=== PATIENT | male | born 1965 ===

== ENCOUNTER 2024-11-22 00:34 | Inpatient (IN) | payer MEDICAID, OTHER ==
[~2024-11-22] VITALS: Ht 177.8 cm; Wt 76.5 kg
[2024-11-22 01:07] LABS: Hematocrit 45.8 % (41.0-53.0); Hemoglobin 16.0 g/dL (13.5-17.5); Mean Corpuscular Hemoglobin 31.3 pg (28.0-32.0); Mean Corpuscular Volume 89.4 fL (80.0-100.0); Nucleated Red Blood Cells % 0.1 %
[2024-11-22 01:14] LABS: Anion Gap 11 (5-15); Carbon Dioxide 26 mmol/L (20-31); Potassium 3.7 mmol/L (3.5-5.1); Sodium 145 mmol/L (136-145)
[2024-11-22 01:15] LABS: Calcium 9.6 mg/dL (8.7-10.4)
[2024-11-22 01:17] LABS: Chloride 108 mmol/L (98-107)
[2024-11-22 01:20] LABS: BUN/Creatinine Ratio 9.4 (10.0-20.0)
[2024-11-22 01:26] LABS: Blood Urea Nitrogen 9 mg/dL (9-23); Glucose 110 mg/dL (74-106)
[2024-11-22] MEDS ORDERED: DOCU-94 PO (02:41)
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
[2024-11-22] MEDS ORDERED: OMEP-434 PO (02:45)
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
[2024-11-22 06:50] LABS: Barbiturate Scree,Urine Neg (NEGATIVE); Opiate Scree,Urine Neg (NEGATIVE)
[2024-11-22 06:51] LABS: Amphetamine Screen, Urine Neg (NEGATIVE); Benzodiazephine Screen, Urine Pos (NEGATIVE); Cannabinoid Screen, Urine Neg (NEGATIVE); Cocaine Screen, Urine Neg (NEGATIVE); Phencyclidine Screen, Urine Neg (NEGATIVE)
[2024-11-22 06:56] LABS: Urine Protein, UAD Negative (Negative)
[2024-11-22 08:30] VITALS: PULSE 74; RESP 16; O2SAT 100
--- NOTE | 2024-11-22 10:21 | DVH ---
CT CT AB PEL WO CON-NO ORAL OR IV INDICATION: abd pain poss rectal bleed EXAM DATE: 11/22/2024 09:39 AM COMPARISON: None RADIATION DOSE: CTDIvol: 8.8 mGy, DLP: 506.97 mGy*cm PROCEDURE: Helical CT images were obtained of the abdomen and pelvis without IV contrast Sagittal and coronal reconstructions are provided. ORAL CONTRAST: None. ADDITIONAL IMAGES / REFORMATS: None All C T scans at this medical facility are performed using dose modulation techniques as appropriate to a p erformed exam including the following: Automated exposure control was utilized; adjustment of the MA and/or KV according to patient size; and use of iterative reconstruction technique. FINDINGS: LUNG BASE: Normal. LIVER: Severe hepatic steatosis. GALLBLADDER AND BILIARY TREE: No calcified gallstones. Normal caliber wall. No intra- or extrahepatic biliary ductal dilation. PANCREAS: Normal. SPLEEN: Normal. BOWEL: Severe sigmoid diverticulosis.. Normal appendix. ADRENALS: Normal. KIDNEYS AND URETER: 2.1 cm right kidney cyst. BLADDER: Normal. REPRODUCTIVE ORGANS: Normal. LYMPH NODES:No lymphadenopathy. PERITONEUM: No ascites or free air. No other fluid collection. VESSELS: Scattered atherosclerotic calcifications are noted. RETROPERITONEUM: Normal. ABDOMINAL WALL: Normal. BONES: Scattered osseous degenerative changes are noted. IMPRESSION: No acute intraabdominal abnormality. No hyperdense material seen in the bowel lumen. Severe hepatic steatosis.
[2024-11-22] MEDS: PANTOPRAZOLE 40 MG/10 ML VIAL INJ IV ONE (11:15)
[2024-11-22] MEDS ORDERED: ONDANSETRON HCL 4 MG/2 ML VIAL IV PRN (11:15)
[2024-11-22] MEDS ORDERED: NITROGLYCERIN 0.4 MG SL TAB SL PRN (11:15)
[2024-11-22] MEDS: SODIUM CHLORIDE 0.9% 1,000 ML IV SCH (11:15)
[2024-11-22] MEDS ORDERED: LORazepam 2MG/ML-1ML VIAL IV PRN (11:15)
[2024-11-22] MEDS ORDERED: SODIUM CHLORIDE 0.9% 1,000 ML IV ONE (11:15)
[2024-11-22] MEDS ORDERED: DOCUSATE SOD 100 MG CAP PO PRN (11:15)
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
[2024-11-22 11:57] LABS: Magnesium 1.7 mg/dL (1.6-2.6)
[2024-11-22 15:53] LABS: Amphetamine Screen, Urine Neg (NEGATIVE)
[2024-11-22 16:11] LABS: Barbiturate Scree,Urine Neg (NEGATIVE); Benzodiazephine Screen, Urine Pos (NEGATIVE); Cannabinoid Screen, Urine Neg (NEGATIVE); Opiate Scree,Urine Neg (NEGATIVE); Phencyclidine Screen, Urine Neg (NEGATIVE)
[2024-11-22 16:13] LABS: Cocaine Screen, Urine Neg (NEGATIVE)
[2024-11-22] MEDS: FOLIC ACID 1 MG, MAGNESIUM SULF SDV 50% 8 MEQ, MULTIPLE VITAMIN 10 ML, THIAMINE INJ 100... INJ SCH (18:13)
[2024-11-22] MEDS ORDERED: CLON-1004 PO (18:22)
[2024-11-22] MEDS ORDERED: AMPH20TA2 PO (18:22)
[2024-11-22] MEDS ORDERED: LISI40TA16 PO (18:22)
[2024-11-22] MEDS ORDERED: clonazePAM 0.5 MG TAB PO SCH (22:00)
[2024-11-22] MEDS: PANTOPRAZOLE 40 MG/10 ML VIAL INJ IV SCH (22:14)
[2024-11-23] VITALS: BP 144/92; PULSE 67
[2024-11-23 04:10] VITALS: BP 147/84; PULSE 69; RESP 18; TEMP 97.5; O2SAT 98
[2024-11-23 08:50] LABS: Albumin 3.9 g/dL (3.2-4.8); Alkaline Phosphatase 57 U/L (46-116); Anion Gap 10 (5-15); BUN/Creatinine Ratio 8.0 (10.0-20.0); Carbon Dioxide 24 mmol/L (20-31); Chloride 105 mmol/L (98-107); Glucose 93 mg/dL (74-106); Potassium 3.6 mmol/L (3.5-5.1); Sodium 139 mmol/L (136-145); Total Protein 6.1 g/dL (5.7-8.2)
[2024-11-23 08:52] LABS: Alanine Aminotransferase 69 U/L (7-40); Blood Urea Nitrogen 7 mg/dL (9-23)
[2024-11-23 08:53] LABS: Bilirubin, Total 1.5 mg/dL (0.2-1.0); Calcium 8.6 mg/dL (8.7-10.4)
[2024-11-23 08:56] LABS: Hematocrit 41.0 % (41.0-53.0); Hemoglobin 14.3 g/dL (13.5-17.5); Mean Corpuscular Hemoglobin 31.4 pg (28.0-32.0); Mean Corpuscular Volume 89.8 fL (80.0-100.0); Nucleated Red Blood Cells % 0.3 %
[2024-11-23 09:15] VITALS: BP 148/97; PULSE 75; RESP 20; TEMP 99; O2SAT 99
[2024-11-23] MEDS: LISINOPRIL 20 MG TAB PO SCH (09:25)
--- NOTE | 2024-11-23 12:14 | DVHPN2 ---
Reviewed: Care Plan, H&P, Labs, Medications, Previous Orders, Radiology Changes from previous H/P or p: No Changes Eyes: No Pain, No Vision change, No Conjunctivae inflammation, No Eyelid inflammation, No Other, No Redness ENT: No Ear pain, No Ear discharge, No Nose pain, No Nose discharge, No Nose congestion, No Mouth pain, No Mouth swelling, No Throat pain, No Throat swelling, No Other Cardiovascular: No Chest Pain, No Palpitations, No Orthopnea, No Paroxysmal Noc. Dyspnea, No Edema, No Lt Headedness, No Other Respiratory: No Cough, No Dry, No Shortness of breath, No SOB with excertion, No Wheezing, No Hemoptysis, No Pleuritic Pain, No Sputum, No Other Gastrointestinal: No Nausea, No Vomiting, No Abdominal Pain, No Diarrhea, No Constipation, No Melena; Hematochezia; No Other Genitourinary: No Dysuria, No Frequency, No Incontinence, No Hematuria, No Retention, No Other Musculoskeletal: No other, No neck pain, No shoulder pain, No arm pain, No back pain, No hand pain, No leg pain, No foot pain Skin: No Rash, No Lesions, No Jaundice, No Bruising, No Other Objective Vitals Vital Signs Date Time Temp Pulse Resp B/P (MAP) Pulse Ox O2 Delivery O2 Flow Rate FiO2 11/23/24 09:25 148/97 11/23/24 09:15 99.0 75 20 99 99.0 11/22/24 20:00 Room Air* 0 21 Intake/Output Intake and Output 11/23/24 07:00 Intake Total 1000 ml Balance 1000 ml Intake Oral 1000 ml # Voids 5 Medications Current Medications Medications Dose Ordered Sig/Hattie Route Start Time Stop Time Status Last Admin Dose Admin Sodium Chloride 1,000 ml @ 120 mls/hr Q8H20M IV 11/22/24 11:15 11/23/24 03:55 120 MLS/HR Ondansetron HCl 4 mg Q4HP PRN IV 11/22/24 11:15 Docusate Sodium 100 mg BIDPRN PRN PO 11/22/24 11:15 Nitroglycerin 0.4 mg Q5MINP PRN SL 11/22/24 11:15 Pantoprazole Sodium 40 mg BID IV 11/22/24 22:00 11/23/24 09:22 40 MG Chlordiazepoxide HCl 50 mg Q12H PO 11/23/24 18:00 11/24/24 06:01 Chlordiazepoxide HCl 25 mg Q12H PO 11/24/24 18:00 11/25/24 06:01 Chlordiazepoxide HCl 25 mg QAM PO 11/26/24 07:00 11/26/24 07:01 Lorazepam 1 mg Q2HPRN PRN IV 11/22/24 11:15 Folic Acid 1 mg/ Magnesium Sulfate 8 meq/ Multivitamins 10 ml/Thiamine HCl 100 mg/Sodium Chloride 1,013.2 ml @ 126.247 mls/hr DAILY@1800 INJ 11/22/24 18:00 11/22/24 18:13 126.247 MLS/HR Lisinopril 40 mg DAILY PO 11/23/24 10:00 11/23/24 09:25 40 MG Clonazepam 1 mg HSPRN PO 11/22/24 22:00 Hold Laboratory Results Laboratory Tests 11/23/24 07:29 Chemistry Test 11/23/24 07:29 Albumin 3.9 g/dL (3.2-4.8) Calcium Level 8.6 mg/dL (8.7-10.4) L Total Protein 6.1 g/dL (5.7-8.2) LFT Test 11/23/24 07:29 Alanine Aminotransferase (ALT) 69 U/L (7-40) H Alkaline Phosphatase 57 U/L (46-116) Aspartate Amino Transferase (AST) 70 U/L (13-40) H Total Bilirubin 1.5 mg/dL (0.2-1.0) H Urinalysis Test 11/22/24 06:17 Urine Color Yellow (Yellow) Urine Clarity Clear (Clear) Urine pH 6.0 (5.0-9.0) Urine Specific [place] 1.022 (1.001-1.035) Urine Protein Negative (Negative) Urine Ketones 1+ (Negative) H Urine Blood Trace /uL (Negative) H Urine Nitrite Negative (Negative) Urine Bilirubin Negative (Negative) Urine Urobilinogen 2 mg/dL (Negative) H Urine Leukocyte Esterase Negative /uL (Negative) Urine RBC 6 /hpf (0 - 3) Urine Microscopic WBC 3 /HPF (0-3) Urine Squamous Epithelial Cells Few /hpf (<5) Urine Bacteria None seen /hpf (None Seen) Urine Hyaline Casts Few /lpf (0 - 2) Urine Mucus Few (None Seen) Urine Glucose Normal mg/dL (Normal) Labs and/or images reviewed: Labs reviewed by me, Image(s) reviewed by me Assessment/Plan Assessment/Plan Acute alcoholic intoxication with a blood alcohol level 273: Banana bag Acute alcoholic withdrawal: Librium Ativan p.r.n. Acute Metabolic and toxic encephalopathy secondary to alcohol abuse Hypertension Acute dehydration: IV fluids No Previous History of seizures Anxiety Depression CT abdomen pelvis without contrast neg Plan discussed with: Patient Date of Service: Nov 23, 2024 Billing Provider: APRIL CUBA MD Common Visit Codes: [id number] INP/OBS CARE(HIGH) APRIL CUBA MD Nov 23, 2024 12:14
[2024-11-23 17:12] VITALS: BP 145/95; PULSE 67; RESP 20; TEMP 97.7; O2SAT 98
[2024-11-23 21:00] VITALS: BP 154/99; PULSE 81; RESP 17; TEMP 97.8; O2SAT 97
[2024-11-24 01:00] VITALS: BP 142/91; PULSE 59; RESP 18; TEMP 97.6; O2SAT 99
[2024-11-24 04:46] VITALS: BP 140/80; PULSE 62; RESP 18; TEMP 97.7; O2SAT 97
[2024-11-24 08:56] VITALS: BP 128/75; PULSE 64; PULSE 98; RESP 18; TEMP 97.6; O2SAT 64; O2SAT 98
--- NOTE | 2024-11-24 11:16 | DVHPN2 ---
Reviewed: Care Plan, H&P, Labs, Medications, Previous Orders, Radiology Changes from previous H/P or p: No Changes Eyes: No Pain, No Vision change, No Conjunctivae inflammation, No Eyelid inflammation, No Other, No Redness ENT: No Ear pain, No Ear discharge, No Nose pain, No Nose discharge, No Nose congestion, No Mouth pain, No Mouth swelling, No Throat pain, No Throat swelling, No Other Cardiovascular: No Chest Pain, No Palpitations, No Orthopnea, No Paroxysmal Noc. Dyspnea, No Edema, No Lt Headedness, No Other Respiratory: No Cough, No Dry, No Shortness of breath, No SOB with excertion, No Wheezing, No Hemoptysis, No Pleuritic Pain, No Sputum, No Other Gastrointestinal: No Nausea, No Vomiting, No Abdominal Pain, No Diarrhea, No Constipation, No Melena; Hematochezia; No Other Genitourinary: No Dysuria, No Frequency, No Incontinence, No Hematuria, No Retention, No Other Musculoskeletal: No other, No neck pain, No shoulder pain, No arm pain, No back pain, No hand pain, No leg pain, No foot pain Skin: No Rash, No Lesions, No Jaundice, No Bruising, No Other Objective Vitals Vital Signs Date Time Temp Pulse Resp B/P (MAP) Pulse Ox O2 Delivery O2 Flow Rate FiO2 11/24/24 08:56 97.6 98 18 128/75 (92) 64 97.6 11/23/24 20:00 Room Air* 0 21 Intake/Output Intake and Output 11/24/24 07:00 Intake Total 2150 ml Balance 2150 ml Intake Oral 2150 ml # Voids 11 Medications Current Medications Medications Dose Ordered Sig/Hattie Route Start Time Stop Time Status Last Admin Dose Admin Sodium Chloride 1,000 ml @ 120 mls/hr Q8H20M IV 11/22/24 11:15 11/23/24 20:35 120 MLS/HR Ondansetron HCl 4 mg Q4HP PRN IV 11/22/24 11:15 Docusate Sodium 100 mg BIDPRN PRN PO 11/22/24 11:15 Nitroglycerin 0.4 mg Q5MINP PRN SL 11/22/24 11:15 Pantoprazole Sodium 40 mg BID IV 11/22/24 22:00 11/23/24 22:10 40 MG Chlordiazepoxide HCl 25 mg Q12H PO 11/24/24 18:00 11/25/24 06:01 Chlordiazepoxide HCl 25 mg QAM PO 11/26/24 07:00 11/26/24 07:01 Lorazepam 1 mg Q2HPRN PRN IV 11/22/24 11:15 Folic Acid 1 mg/ Magnesium Sulfate 8 meq/ Multivitamins 10 ml/Thiamine HCl 100 mg/Sodium Chloride 1,013.2 ml @ 126.247 mls/hr DAILY@1800 INJ 11/22/24 18:00 11/23/24 18:00 126.247 MLS/HR Lisinopril 40 mg DAILY PO 11/23/24 10:00 11/23/24 09:25 40 MG Clonazepam 1 mg HSPRN PO 11/22/24 22:00 Hold Laboratory Results Laboratory Tests 11/23/24 07:29 Urinalysis Test 11/22/24 06:17 Urine Color Yellow (Yellow) Urine Clarity Clear (Clear) Urine pH 6.0 (5.0-9.0) Urine Specific [place] 1.022 (1.001-1.035) Urine Protein Negative (Negative) Urine Ketones 1+ (Negative) H Urine Blood Trace /uL (Negative) H Urine Nitrite Negative (Negative) Urine Bilirubin Negative (Negative) Urine Urobilinogen 2 mg/dL (Negative) H Urine Leukocyte Esterase Negative /uL (Negative) Urine RBC 6 /hpf (0 - 3) Urine Microscopic WBC 3 /HPF (0-3) Urine Squamous Epithelial Cells Few /hpf (<5) Urine Bacteria None seen /hpf (None Seen) Urine Hyaline Casts Few /lpf (0 - 2) Urine Mucus Few (None Seen) Urine Glucose Normal mg/dL (Normal) Labs and/or images reviewed: Labs reviewed by me, Image(s) reviewed by me Assessment/Plan Assessment/Plan Acute alcoholic intoxication with blood alcohol level 273: Banana bag Acute alcoholic withdrawal: Librium Ativan p.r.n. Acute Metabolic and toxic encephalopathy secondary to alcohol abuse Hypertension Acute dehydration: IV fluids No Previous History of seizures Anxiety Depression CT abdomen pelvis without contrast neg Plan discussed with: Patient Date of Service: Nov 24, 2024 Billing Provider: APRIL CUBA MD Common Visit Codes: [id number] INP/OBS CARE(HIGH) APRIL CUBA MD Nov 24, 2024 11:16
[2024-11-24 13:16] VITALS: BP 127/79; PULSE 63; RESP 18; TEMP 97.5; O2SAT 97
[2024-11-24] MEDS: FOLIC ACID 1 MG TAB PO ONE (13:56)
[2024-11-24] MEDS: MAGNESIUM OXIDE 400 MG TAB PO ONE (13:56)
[2024-11-24] MEDS: MULTIPLE VITAMIN TAB PO ONE (13:56)
[2024-11-24] MEDS: THIAMINE HCL 100 MG TAB PO ONE (13:56)
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
[2024-11-24 16:32] VITALS: BP 128/76; PULSE 64; RESP 18; TEMP 97.6; O2SAT 97
[2024-11-24 20:41] VITALS: BP 136/87; PULSE 71; RESP 18; TEMP 97.8; O2SAT 97
[2024-11-25] VITALS (8 sets, daily range): BP systolic 129–148; BP diastolic 74–101; PULSE 63–91; RESP 16–18; TEMP 97.7–98.1; O2SAT 97–98
[2024-11-25 08:01] LABS: Hematocrit 40.7 % (41.0-53.0); Hemoglobin 14.4 g/dL (13.5-17.5); Mean Corpuscular Hemoglobin 31.9 pg (28.0-32.0); Mean Corpuscular Volume 90.0 fL (80.0-100.0); Nucleated Red Blood Cells % 0.2 %
[2024-11-25] MEDS: MULTIPLE VITAMIN TAB PO SCH (10:03)
[2024-11-25] MEDS: FOLIC ACID 1 MG TAB PO SCH (10:04)
[2024-11-25] MEDS: THIAMINE HCL 100 MG TAB PO SCH (10:04)
[2024-11-25] MEDS: MAGNESIUM OXIDE 400 MG TAB PO SCH (10:04)
--- NOTE | 2024-11-25 10:28 | DVHPN2 ---
Reviewed: Care Plan, H&P, Labs, Medications, Previous Orders, Radiology Changes from previous H/P or p: No Changes Eyes: No Pain, No Vision change, No Conjunctivae inflammation, No Eyelid inflammation, No Other, No Redness ENT: No Ear pain, No Ear discharge, No Nose pain, No Nose discharge, No Nose congestion, No Mouth pain, No Mouth swelling, No Throat pain, No Throat swelling, No Other Cardiovascular: No Chest Pain, No Palpitations, No Orthopnea, No Paroxysmal Noc. Dyspnea, No Edema, No Lt Headedness, No Other Respiratory: No Cough, No Dry, No Shortness of breath, No SOB with excertion, No Wheezing, No Hemoptysis, No Pleuritic Pain, No Sputum, No Other Gastrointestinal: No Nausea, No Vomiting, No Abdominal Pain, No Diarrhea, No Constipation, No Melena; Hematochezia; No Other Genitourinary: No Dysuria, No Frequency, No Incontinence, No Hematuria, No Retention, No Other Musculoskeletal: No other, No neck pain, No shoulder pain, No arm pain, No back pain, No hand pain, No leg pain, No foot pain Skin: No Rash, No Lesions, No Jaundice, No Bruising, No Other Objective Vitals Vital Signs Date Time Temp Pulse Resp B/P (MAP) Pulse Ox O2 Delivery O2 Flow Rate FiO2 11/25/24 10:05 132/95 11/25/24 08:47 98.0 76 16 97 98.0 11/24/24 20:00 Room Air* 0 21 Intake/Output Intake and Output 11/25/24 07:00 Intake Total 1700 ml Balance 1700 ml Intake Oral 1700 ml # Voids 9 # Bowel Movements 1 Medications Current Medications Medications Dose Ordered Sig/Hattie Route Start Time Stop Time Status Last Admin Dose Admin Sodium Chloride 1,000 ml @ 120 mls/hr Q8H20M IV 11/22/24 11:15 11/25/24 05:36 120 MLS/HR Ondansetron HCl 4 mg Q4HP PRN IV 11/22/24 11:15 Docusate Sodium 100 mg BIDPRN PRN PO 11/22/24 11:15 Nitroglycerin 0.4 mg Q5MINP PRN SL 11/22/24 11:15 Pantoprazole Sodium 40 mg BID IV 11/22/24 22:00 11/25/24 10:03 40 MG Chlordiazepoxide HCl 25 mg QAM PO 11/26/24 07:00 11/26/24 07:01 Lorazepam 1 mg Q2HPRN PRN IV 11/22/24 11:15 Lisinopril 40 mg DAILY PO 11/23/24 10:00 11/25/24 10:05 40 MG Clonazepam 1 mg HSPRN PO 11/22/24 22:00 Hold Folic Acid 1 mg DAILY PO 11/25/24 10:00 11/25/24 10:04 1 MG Multivitamins 1 tab DAILY PO 11/25/24 10:00 11/25/24 10:03 1 TAB Magnesium Oxide 400 mg DAILY PO 11/25/24 10:00 11/25/24 10:04 400 MG Thiamine HCl 100 mg DAILY PO 11/25/24 10:00 11/25/24 10:04 100 MG Laboratory Results Laboratory Tests 11/23/24 07:29 11/25/24 06:58 Urinalysis Test 11/22/24 06:17 Urine Color Yellow (Yellow) Urine Clarity Clear (Clear) Urine pH 6.0 (5.0-9.0) Urine Specific [place] 1.022 (1.001-1.035) Urine Protein Negative (Negative) Urine Ketones 1+ (Negative) H Urine Blood Trace /uL (Negative) H Urine Nitrite Negative (Negative) Urine Bilirubin Negative (Negative) Urine Urobilinogen 2 mg/dL (Negative) H Urine Leukocyte Esterase Negative /uL (Negative) Urine RBC 6 /hpf (0 - 3) Urine Microscopic WBC 3 /HPF (0-3) Urine Squamous Epithelial Cells Few /hpf (<5) Urine Bacteria None seen /hpf (None Seen) Urine Hyaline Casts Few /lpf (0 - 2) Urine Mucus Few (None Seen) Urine Glucose Normal mg/dL (Normal) Labs and/or images reviewed: Labs reviewed by me, Image(s) reviewed by me Assessment/Plan Assessment/Plan Acute alcoholic intoxication with blood alcohol level 273: Down to 29 Banana bag Acute alcoholic withdrawal: Librium Ativan p.r.n. Acute Metabolic and toxic encephalopathy secondary to alcohol abuse Hypertension Acute dehydration: IV fluids No Previous History of seizures Melena, GI consult by Dr. 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
--- NOTE | 2024-11-25 13:47 | DVHPN2 ---
Subjective Patient admits to feeling better No abdominal pain. No nausea vomiting Patient has dark stool Reviewed: Care Plan, H&P, Labs, Medications, Previous Orders, Radiology Changes from previous H/P or p: No Changes Eyes: No Pain, No Vision change, No Conjunctivae inflammation, No Eyelid inflammation, No Other, No Redness ENT: No Ear pain, No Ear discharge, No Nose pain, No Nose discharge, No Nose congestion, No Mouth pain, No Mouth swelling, No Throat pain, No Throat swelling, No Other Cardiovascular: No Chest Pain, No Palpitations, No Orthopnea, No Paroxysmal Noc. Dyspnea, No Edema, No Lt Headedness, No Other Respiratory: No Cough, No Dry, No Shortness of breath, No SOB with excertion, No Wheezing, No Hemoptysis, No Pleuritic Pain, No Sputum, No Other Gastrointestinal: No Nausea, No Vomiting, No Abdominal Pain, No Diarrhea, No Constipation, No Melena; Hematochezia; No Other Genitourinary: No Dysuria, No Frequency, No Incontinence, No Hematuria, No Retention, No Other Musculoskeletal: No other, No neck pain, No shoulder pain, No arm pain, No back pain, No hand pain, No leg pain, No foot pain Skin: No Rash, No Lesions, No Jaundice, No Bruising, No Other Objective Vitals Vital Signs Date Time Temp Pulse Resp B/P (MAP) Pulse Ox O2 Delivery O2 Flow Rate FiO2 11/25/24 13:00 98.0 75 16 140/86 (104) 98 98.0 11/25/24 08:00 Room Air* 0 21 Intake/Output Intake and Output 11/25/24 06:59 Intake Total 1700 ml Balance 1700 ml Intake Oral 1700 ml # Voids 9 # Bowel Movements 1 General Appearance: Alert, Oriented X3, Cooperative, No acute distress, mild distress, moderate distress, severe distress, Other Lungs: Clear to auscultation, Normal air movement, Other Cardiovascular: Regular rate, Normal S1, Normal S2, No murmurs, Gallops, Rubs, Other Abdomen: Normal bowel sounds, Soft, No tenderness, No hepatospenomegaly, No masses, Other Medications Current Medications Medications Dose Ordered Sig/Hattie Route Start Time Stop Time Status Last Admin Dose Admin Sodium Chloride 1,000 ml @ 120 mls/hr Q8H20M IV 11/22/24 11:15 8/18/25 05:36 120 MLS/HR Ondansetron HCl 4 mg Q4HP PRN IV 11/22/24 11:15 Docusate Sodium 100 mg BIDPRN PRN PO 11/22/24 11:15 Nitroglycerin 0.4 mg Q5MINP PRN SL 11/22/24 11:15 Pantoprazole Sodium 40 mg BID IV 11/22/24 22:00 11/25/24 10:03 40 MG Chlordiazepoxide HCl 25 mg QAM PO 11/26/24 07:00 11/26/24 07:01 Lorazepam 1 mg Q2HPRN PRN IV 11/22/24 11:15 Lisinopril 40 mg DAILY PO 11/23/24 10:00 11/25/24 10:05 40 MG Clonazepam 1 mg HSPRN PO 11/22/24 22:00 Hold Folic Acid 1 mg DAILY PO 11/25/24 10:00 11/25/24 10:04 1 MG Multivitamins 1 tab DAILY PO 11/25/24 10:00 11/25/24 10:03 1 TAB Magnesium Oxide 400 mg DAILY PO 11/25/24 10:00 11/25/24 10:04 400 MG Thiamine HCl 100 mg DAILY PO 11/25/24 10:00 11/25/24 10:04 100 MG Laboratory Results Laboratory Tests 11/23/24 07:29 11/25/24 06:58 Urinalysis Test 11/22/24 06:17 Urine Color Yellow (Yellow) Urine Clarity Clear (Clear) Urine pH 6.0 (5.0-9.0) Urine Specific [place] 1.022 (1.001-1.035) Urine Protein Negative (Negative) Urine Ketones 1+ (Negative) H Urine Blood Trace /uL (Negative) H Urine Nitrite Negative (Negative) Urine Bilirubin Negative (Negative) Urine Urobilinogen 2 mg/dL (Negative) H Urine Leukocyte Esterase Negative /uL (Negative) Urine RBC 6 /hpf (0 - 3) Urine Microscopic WBC 3 /HPF (0-3) Urine Squamous Epithelial Cells Few /hpf (<5) Urine Bacteria None seen /hpf (None Seen) Urine Hyaline Casts Few /lpf (0 - 2) Urine Mucus Few (None Seen) Urine Glucose Normal mg/dL (Normal) Labs and/or images reviewed: Labs reviewed by me, Image(s) reviewed by me Assessment/Plan Assessment/Plan GI bleed Positive stool occult Heavy alcohol history Plan Discussed with Dr. Alvarenga Schedule patient for EGD with biopsy, discussed risks, benefits and alternatives of procedure and sedation, patient understands and agrees Discussed extensively to discontinue alcohol use Plan discussed with: Patient Date of Service: Nov 25, 2024 Billing Provider: EKTA CUBA Common Visit Codes: [id number] INP/OBS CARE(HIGH) EKTA CUBA Nov 25, 2024 13:47
[2024-11-26] VITALS (8 sets, daily range): BP systolic 110–138; BP diastolic 66–95; PULSE 61–71; RESP 11–19; TEMP 97.5–97.9; O2SAT 97–99
[2024-11-26 07:11] LABS: Hematocrit 40.7 % (41.0-53.0); Hemoglobin 14.7 g/dL (13.5-17.5); Mean Corpuscular Hemoglobin 32.4 pg (28.0-32.0); Mean Corpuscular Volume 89.8 fL (80.0-100.0); Nucleated Red Blood Cells % 0.2 %
[2024-11-26 07:40] LABS: INR 0.92 (0.9-1.15); Prothrombin Time 9.8 sec (9.3-11.8)
[2024-11-26] MEDS ORDERED: diphenhdrAMINE HCL 50 MG/1 ML VL ONE (09:10)
[2024-11-26] MEDS ORDERED: SODIUM CHLORIDE LOCK 10 ML ONE (09:10)
[2024-11-26] MEDS ORDERED: MIDAZOLAM HCL 5 MG/ML-1ML VIAL ONE (09:10)
[2024-11-26] MEDS ORDERED: LIDOCAINE VISCOUS 2% 15ML UD ONE (09:10)
[2024-11-26] MEDS ORDERED: NALOXONE HCL 0.4 MG/ML VIAL ONE (09:10)
[2024-11-26] MEDS ORDERED: FLUMAZENIL 0.1 MG/ML INJ 10ML MDV IV ONE (09:10)
[2024-11-26] MEDS ORDERED: fentaNYL CITRATE 100 MCG/2 ML VL ONE ×2 (09:11→16:19)
--- NOTE | 2024-11-26 11:32 | DVHPN2 ---
Reviewed: Care Plan, H&P, Labs, Medications, Previous Orders, Radiology Changes from previous H/P or p: No Changes Eyes: No Pain, No Vision change, No Conjunctivae inflammation, No Eyelid inflammation, No Other, No Redness ENT: No Ear pain, No Ear discharge, No Nose pain, No Nose discharge, No Nose congestion, No Mouth pain, No Mouth swelling, No Throat pain, No Throat swelling, No Other Cardiovascular: No Chest Pain, No Palpitations, No Orthopnea, No Paroxysmal Noc. Dyspnea, No Edema, No Lt Headedness, No Other Respiratory: No Cough, No Dry, No Shortness of breath, No SOB with excertion, No Wheezing, No Hemoptysis, No Pleuritic Pain, No Sputum, No Other Gastrointestinal: No Nausea, No Vomiting, No Abdominal Pain, No Diarrhea, No Constipation, No Melena; Hematochezia; No Other Genitourinary: No Dysuria, No Frequency, No Incontinence, No Hematuria, No Retention, No Other Musculoskeletal: No other, No neck pain, No shoulder pain, No arm pain, No back pain, No hand pain, No leg pain, No foot pain Skin: No Rash, No Lesions, No Jaundice, No Bruising, No Other Objective Vitals Vital Signs Date Time Temp Pulse Resp B/P (MAP) Pulse Ox O2 Delivery O2 Flow Rate FiO2 11/26/24 08:54 97.5 67 17 138/95 (109) 97 97.5 11/26/24 08:00 Room Air* 0 21 Intake/Output Intake and Output 11/26/24 07:00 Intake Total 1668 ml Balance 1668 ml Intake Oral 1668 ml # Voids 11 # Bowel Movements 2 General Appearance: Alert, Oriented X3, Cooperative, No acute distress, mild distress, moderate distress, severe distress, Other Lungs: Clear to auscultation, Normal air movement, Other Cardiovascular: Regular rate, Normal S1, Normal S2, No murmurs, Gallops, Rubs, Other Abdomen: Normal bowel sounds, Soft, No tenderness, No hepatospenomegaly, No masses, Other Medications Current Medications Medications Dose Ordered Sig/Hattie Route Start Time Stop Time Status Last Admin Dose Admin Sodium Chloride 1,000 ml @ 120 mls/hr Q8H20M IV 11/22/24 11:15 11/25/24 14:15 120 MLS/HR Ondansetron HCl 4 mg Q4HP PRN IV 11/22/24 11:15 Docusate Sodium 100 mg BIDPRN PRN PO 11/22/24 11:15 Nitroglycerin 0.4 mg Q5MINP PRN SL 11/22/24 11:15 Pantoprazole Sodium 40 mg BID IV 11/22/24 22:00 11/25/24 21:36 40 MG Lorazepam 1 mg Q2HPRN PRN IV 11/22/24 11:15 Lisinopril 40 mg DAILY PO 11/23/24 10:00 11/25/24 10:05 40 MG Clonazepam 1 mg HSPRN PO 11/22/24 22:00 Hold Folic Acid 1 mg DAILY PO 11/25/24 10:00 11/25/24 10:04 1 MG Multivitamins 1 tab DAILY PO 11/25/24 10:00 11/25/24 10:03 1 TAB Magnesium Oxide 400 mg DAILY PO 11/25/24 10:00 11/25/24 10:04 400 MG Thiamine HCl 100 mg DAILY PO 11/25/24 10:00 11/25/24 10:04 100 MG Laboratory Results Laboratory Tests 11/23/24 07:29 11/26/24 06:07 Coagulation Test 11/26/24 06:07 Prothrombin Time 9.8 sec (9.3-11.8) Prothrombin Time INR 0.92 (0.9-1.15) Urinalysis Test 11/22/24 06:17 Urine Color Yellow (Yellow) Urine Clarity Clear (Clear) Urine pH 6.0 (5.0-9.0) Urine Specific [place] 1.022 (1.001-1.035) Urine Protein Negative (Negative) Urine Ketones 1+ (Negative) H Urine Blood Trace /uL (Negative) H Urine Nitrite Negative (Negative) Urine Bilirubin Negative (Negative) Urine Urobilinogen 2 mg/dL (Negative) H Urine Leukocyte Esterase Negative /uL (Negative) Urine RBC 6 /hpf (0 - 3) Urine Microscopic WBC 3 /HPF (0-3) Urine Squamous Epithelial Cells Few /hpf (<5) Urine Bacteria None seen /hpf (None Seen) Urine Hyaline Casts Few /lpf (0 - 2) Urine Mucus Few (None Seen) Urine Glucose Normal mg/dL (Normal) Labs and/or images reviewed: Labs reviewed by me, Image(s) reviewed by me Assessment/Plan Assessment/Plan Acute alcoholic intoxication with blood alcohol level 273: Down to 29 Banana bag Acute alcoholic withdrawal: Librium Ativan p.r.n. Acute Metabolic and toxic encephalopathy secondary to alcohol abuse Hypertension Acute dehydration: IV fluids No Previous History of seizures Melena, GI consult by Dr. Zachary Alvarenga appreciated , patient getting EGD today Anxiety Depression CT abdomen pelvis without contrast neg Plan discussed with: Patient Date of Service: Nov 26, 2024 Billing Provider: APRIL CUBA MD Common Visit Codes: [id number] INP/OBS CARE(HIGH) APRIL CUBA MD Nov 26, 2024 11:32
[2024-11-26] MEDS: LIDOCAINE VISCOUS 2% 15ML UD MT ONE (16:06)
--- NOTE | 2024-11-26 16:33 | DVHOP2 ---
Operative Report DATE OF OPERATION: 11/26/24 PROCEDURE: Upper Endoscopy with biopsies. PREOPERATIVE INDICATION: The patient is a 59 -year-old male undergoing endoscopy for history of melena POSTOPERATIVE DIAGNOSES: 1. Moderate antral gastritis and moderate duodenitis of the duodenal bulb with superficial erosions PROCEDURE PERFORMED BY: Micheal Alvarenga GI NURSE: Melissa SCOPE: Olympus videoendoscope. ASA CLASS: 3. PREOPERATIVE MEDICATIONS: Versed 5 mg, Fentanyl 150 mcg, Benadryl 50 mg I administered moderate sedation throughout this _8_ minutes procedure. An independent trained observer pushed medications at my direction, and monitored the patient's level of consciousness and physiological status throughout. PROCEDURE IN DETAIL: After obtaining an informed consent, the patient was placed on left lateral decubitus position. The patient was then sedated with the above medications. A bite block was placed between his teeth. The endoscope was then passed through the oropharynx, into the esophagus, and through the stomach and pylorus up to the second and third part of the duodenum. The endoscope was then withdrawn. The 2nd and 3rd part of the duodenal were normal. The duodenal bulb and postbulbar area showed moderate duodenitis with hyperemia erythema and superficial erosions The pre-pyloric area antrum also showed moderate gastritis with superficial pre- pyloric antral gastric erosions and some hyperemia. On retroflexion the fundus and cardia were normal Duodenal and gastric biopsies were obtained. The endoscope was then withdrawn into the distal esophagus Patient had a slightly irregular squamocolumnar junction but no significant erosive esophagitis The patient tolerated the procedure well without difficulty. COMPLICATIONS : None SPECIMENS: Duodenal biopsies Gastric biopsies DISPOSITION: Transfer back to the floor Stable PLAN: 1. Await for biopsy result 2. Will place pt on Protonix 40 mg bid 3. Carafate 1 g p.o. 4 times a day 4. Resume GI soft mechanical diet advance as tolerated 5. Outpatient follow up with GI Services for elective screening colonoscopy 6. Avoid aspirin NSAIDs smoking and alcohol MICHEAL ALVARENGA MD Nov 26, 2024 16:32
[2024-11-26] MEDS: SUCRALFATE 1 GM/10 ML ORAL SUSP PO SCH (18:50)
[2024-11-27 00:32] VITALS: BP 111/63; PULSE 64; RESP 18; TEMP 98.1; O2SAT 98
[2024-11-27 04:32] VITALS: BP 139/91; PULSE 66; RESP 18; TEMP 97.9; O2SAT 99
[2024-11-27 07:16] LABS: Hematocrit 44.4 % (41.0-53.0); Hemoglobin 15.6 g/dL (13.5-17.5); Mean Corpuscular Hemoglobin 31.4 pg (28.0-32.0); Mean Corpuscular Volume 89.4 fL (80.0-100.0); Nucleated Red Blood Cells % 0.0 %
[2024-11-27 07:26] LABS: Albumin 4.4 g/dL (3.2-4.8); Alkaline Phosphatase 65 U/L (46-116); Anion Gap 10 (5-15); BUN/Creatinine Ratio 5.8 (10.0-20.0); Calcium 9.3 mg/dL (8.7-10.4); Carbon Dioxide 25 mmol/L (20-31); Chloride 104 mmol/L (98-107); Potassium 3.5 mmol/L (3.5-5.1); Sodium 139 mmol/L (136-145); Total Protein 7.0 g/dL (5.7-8.2)
[2024-11-27 07:27] LABS: Bilirubin, Total 1.0 mg/dL (0.2-1.0)
[2024-11-27 07:31] LABS: Alanine Aminotransferase 91 U/L (7-40); Blood Urea Nitrogen 6 mg/dL (9-23); Glucose 112 mg/dL (74-106)
[2024-11-27 09:00] VITALS: BP 151/103; PULSE 66; RESP 19; TEMP 97.9; O2SAT 98
[2024-11-27 10:56] LABS: Hepatitis A Total Antibody Positive (Negative)
[2024-11-27 10:57] LABS: Hepatitis B Surface Antigen Negative (Negative); Hepatitis C Antibody Negative (Negative)
--- NOTE | 2024-11-27 12:05 | DVHPN2 ---
Reviewed: Care Plan, H&P, Labs, Medications, Previous Orders, Radiology Changes from previous H/P or p: No Changes Eyes: No Pain, No Vision change, No Conjunctivae inflammation, No Eyelid inflammation, No Other, No Redness ENT: No Ear pain, No Ear discharge, No Nose pain, No Nose discharge, No Nose congestion, No Mouth pain, No Mouth swelling, No Throat pain, No Throat swelling, No Other Cardiovascular: No Chest Pain, No Palpitations, No Orthopnea, No Paroxysmal Noc. Dyspnea, No Edema, No Lt Headedness, No Other Respiratory: No Cough, No Dry, No Shortness of breath, No SOB with excertion, No Wheezing, No Hemoptysis, No Pleuritic Pain, No Sputum, No Other Gastrointestinal: No Nausea, No Vomiting, No Abdominal Pain, No Diarrhea, No Constipation, No Melena; Hematochezia; No Other Genitourinary: No Dysuria, No Frequency, No Incontinence, No Hematuria, No Retention, No Other Musculoskeletal: No other, No neck pain, No shoulder pain, No arm pain, No back pain, No hand pain, No leg pain, No foot pain Skin: No Rash, No Lesions, No Jaundice, No Bruising, No Other Objective Vitals Vital Signs Date Time Temp Pulse Resp B/P (MAP) Pulse Ox O2 Delivery O2 Flow Rate FiO2 11/27/24 10:30 154/100 11/27/24 09:00 97.9 66 19 98 97.9 11/26/24 20:00 Room Air* 0 21 Intake/Output Intake and Output 11/27/24 06:59 Intake Total 1700 ml Balance 1700 ml Intake Oral 700 ml IV Total 1000 ml # Voids 10 # Bowel Movements 1 General Appearance: Alert, Oriented X3, Cooperative, No acute distress, mild distress, moderate distress, severe distress, Other Lungs: Clear to auscultation, Normal air movement, Other Cardiovascular: Regular rate, Normal S1, Normal S2, No murmurs, Gallops, Rubs, Other Abdomen: Normal bowel sounds, Soft, No tenderness, No hepatospenomegaly, No masses, Other Medications Current Medications Medications Dose Ordered Sig/Hattie Route Start Time Stop Time Status Last Admin Dose Admin Sodium Chloride 1,000 ml @ 120 mls/hr Q8H20M IV 11/22/24 11:15 11/27/24 04:11 120 MLS/HR Ondansetron HCl 4 mg Q4HP PRN IV 11/22/24 11:15 Docusate Sodium 100 mg BIDPRN PRN PO 11/22/24 11:15 Nitroglycerin 0.4 mg Q5MINP PRN SL 11/22/24 11:15 Pantoprazole Sodium 40 mg BID IV 11/22/24 22:00 11/27/24 10:29 40 MG Lorazepam 1 mg Q2HPRN PRN IV 11/22/24 11:15 Lisinopril 40 mg DAILY PO 11/23/24 10:00 11/27/24 10:30 40 MG Clonazepam 1 mg HSPRN PO 11/22/24 22:00 Hold Folic Acid 1 mg DAILY PO 11/25/24 10:00 11/27/24 10:29 1 MG Multivitamins 1 tab DAILY PO 11/25/24 10:00 11/27/24 10:29 1 TAB Magnesium Oxide 400 mg DAILY PO 11/25/24 10:00 11/27/24 10:29 400 MG Thiamine HCl 100 mg DAILY PO 11/25/24 10:00 11/27/24 10:29 100 MG Sucralfate 1 gm QID@0600,1130,1700,2200 PO 11/26/24 17:00 11/27/24 10:32 1 GM Laboratory Results Laboratory Tests 11/27/24 06:08 Chemistry Test 11/27/24 06:08 Albumin 4.4 g/dL (3.2-4.8) Calcium Level 9.3 mg/dL (8.7-10.4) Total Protein 7.0 g/dL (5.7-8.2) LFT Test 11/27/24 06:08 Alanine Aminotransferase (ALT) 91 U/L (7-40) H Alkaline Phosphatase 65 U/L (46-116) Aspartate Amino Transferase (AST) 64 U/L (13-40) H Total Bilirubin 1.0 mg/dL (0.2-1.0) Urinalysis Test 11/22/24 06:17 Urine Color Yellow (Yellow) Urine Clarity Clear (Clear) Urine pH 6.0 (5.0-9.0) Urine Specific [place] 1.022 (1.001-1.035) Urine Protein Negative (Negative) Urine Ketones 1+ (Negative) H Urine Blood Trace /uL (Negative) H Urine Nitrite Negative (Negative) Urine Bilirubin Negative (Negative) Urine Urobilinogen 2 mg/dL (Negative) H Urine Leukocyte Esterase Negative /uL (Negative) Urine RBC 6 /hpf (0 - 3) Urine Microscopic WBC 3 /HPF (0-3) Urine Squamous Epithelial Cells Few /hpf (<5) Urine Bacteria None seen /hpf (None Seen) Urine Hyaline Casts Few /lpf (0 - 2) Urine Mucus Few (None Seen) Urine Glucose Normal mg/dL (Normal) Labs and/or images reviewed: Labs reviewed by me, Image(s) reviewed by me Assessment/Plan Assessment/Plan Acute alcoholic intoxication with blood alcohol level 273: Down to 29 Banana bag Acute alcoholic withdrawal: Librium Ativan p.r.n. Acute Metabolic and toxic encephalopathy secondary to alcohol abuse Hypertension Acute dehydration: IV fluids No Previous History of seizures Melena, mild gastritis and duodenitis by EGD by Dr. Zachary Alvarenga Anxiety Depression CT abdomen pelvis without contrast neg Plan discussed with: Patient Date of Service: Nov 27, 2024 Billing Provider: APRIL CUBA MD Common Visit Codes: [id number] INP/OBS CARE(HIGH) APRIL CUBA MD Nov 27, 2024 12:05
[2024-11-27] MEDS ORDERED: PANT40T PO (12:08)
[2024-11-27] MEDS ORDERED: THIA100T13 PO (12:08)
[2024-11-27] MEDS ORDERED: FOLI-119 PO (12:08)
[2024-11-27] MEDS ORDERED: SUCR1TAB31 PO (12:08)
--- NOTE | 2024-11-27 12:10 | DVHDS2 ---
Discharge Summary Date of Admission Nov 22, 2024 at 11:15 Date of Discharge: Nov 27, 2024 Admitting Diagnosis Acute alcoholic intoxication Wounds: EGD Labs/Diagnostic Data: Laboratory Results Test 11/27/24 06:08 11/26/24 06:07 11/22/24 20:00 11/22/24 11:34 White Blood Count 7.3 10^3/uL (4.4-10.8) Red Blood Count 4.96 10^6/uL (4.5-5.90) Hemoglobin 15.6 g/dL (13.5-17.5) Hematocrit 44.4 % (41.0-53.0) Mean Corpuscular Volume 89.4 fL (80.0-100.0) Mean Corpuscular Hemoglobin 31.4 pg (28.0-32.0) Mean Corpuscular Hemoglobin Concent 35.1 g/dL (32.0-36.0) Red Cell Distribution Width 15.2 % (11.8-14.3) Platelet Count 242 10^3/uL (140-450) Mean Platelet Volume 7.8 fL (6.9-10.8) Neutrophils (%) (Auto) 61.2 % (37.0-80.0) Lymphocytes (%) (Auto) 24.8 % (10.0-50.0) Monocytes (%) (Auto) 11.0 % (0.0-12.0) Eosinophils (%) (Auto) 2.6 % (0.0-7.0) Basophils (%) (Auto) 0.4 % (0.0-2.0) Neutrophils # (Auto) 4.5 10 ^3/uL (1.6-8.6) Lymphocytes # (Auto) 1.8 10 ^3/uL (0.4-5.4) Monocytes # (Auto) 0.8 10 ^3/uL (0-1.3) Eosinophils # (Auto) 0.2 10 ^3/uL (0-0.8) Basophils # (Auto) 0 10 ^3/uL (0-0.2) Nucleated Red Blood Cells 0.0 % Sodium Level 139 mmol/L (136-145) Potassium Level 3.5 mmol/L (3.5-5.1) Chloride Level 104 mmol/L (98-107) Carbon Dioxide Level 25 mmol/L (20-31) Anion Gap 10 (5-15) Blood Urea Nitrogen 6 mg/dL (9-23) Creatinine 1.03 mg/dL (0.700-1.30) Glomerular Filtration Rate Calc 85 mL/min (>90) BUN/Creatinine Ratio 5.8 (10.0-20.0) Serum Glucose 112 mg/dL (74-106) Calcium Level 9.3 mg/dL (8.7-10.4) Total Bilirubin 1.0 mg/dL (0.2-1.0) Aspartate Amino Transferase (AST) 64 U/L (13-40) Alanine Aminotransferase (ALT) 91 U/L (7-40) Alkaline Phosphatase 65 U/L (46-116) Total Protein 7.0 g/dL (5.7-8.2) Albumin 4.4 g/dL (3.2-4.8) Hepatitis A Antibody Total Positive (Negative) Hepatitis B Surface Antigen Negative (Negative) Hepatitis B Surface Antibody Negative (Negative) Hepatitis B Core Total Antibody Negative (Negative) Hepatitis C Antibody Negative (Negative) Prothrombin Time 9.8 sec (9.3-11.8) Prothrombin Time INR 0.92 (0.9-1.15) Stool Occult Blood Positive x 1 (Negative) Stool Occult Blood Sample #3 (Negative) Magnesium Level 1.7 mg/dL (1.6-2.6) Plasma/Serum Blood Alcohol 29.0 mg/dL (<10) Test 11/22/24 06:17 Urine Color Yellow (Yellow) Urine Clarity Clear (Clear) Urine pH 6.0 (5.0-9.0) Urine Specific [place] 1.022 (1.001-1.035) Urine Protein Negative (Negative) Urine Ketones 1+ (Negative) Urine Blood Trace /uL (Negative) Urine Nitrite Negative (Negative) Urine Bilirubin Negative (Negative) Urine Urobilinogen 2 mg/dL (Negative) Urine Leukocyte Esterase Negative /uL (Negative) Urine RBC 6 /hpf (0 - 3) Urine Microscopic WBC 3 /HPF (0-3) Urine Squamous Epithelial Cells Few /hpf (<5) Urine Bacteria None seen /hpf (None Seen) Urine Hyaline Casts Few /lpf (0 - 2) Urine Mucus Few (None Seen) Urine Glucose Normal mg/dL (Normal) Urine Opiates Screen Neg (NEGATIVE) Urine Fentanyl Screen Neg (NEGATIVE) Urine Barbiturates Screen Neg (NEGATIVE) Urine Phencyclidine Screen Neg (NEGATIVE) Urine Amphetamines Screen Neg (NEGATIVE) Urine Benzodiazepines Screen Pos (NEGATIVE) Urine Cocaine Screen Neg (NEGATIVE) Urine Cannabinoids Screen Neg (NEGATIVE) Other Laboratory Tests 11/27/24 06:08 Brief Hx & Hospital Course: 59-year-old male with a chronic alcoholism admitted for acute alcoholic intoxication blood alcohol level 273 treated with a banana bag Librium Ativan p.r.n. came down to 29. Underwent EGD by Dr. Alvarenga found to have mild gastritis and duodenitis placed on pantoprazole and Carafate CT abdomen pelvis without contrast negative history of anxiety and depression discharged home on medications advised to quit using alcohol Consults/Reason for consult GI Dr. Zachary Alvarenga Operations or Procedures EGD Condition at Discharge: Fair Final Diagnosis/Problems List Acute alcoholic intoxication with blood alcohol level 273: Down to 29 Banana bag Acute alcoholic withdrawal: Librium Ativan p.r.n. Acute Metabolic and toxic encephalopathy secondary to alcohol abuse Hypertension Acute dehydration: IV fluids No Previous History of seizures Melena, mild gastritis and duodenitis by EGD by Dr. Zachary Alvarenga Anxiety Depression CT abdomen pelvis without contrast neg Discharge Disposition: Home Discharge Instruct/Medications Diet: Cardiac 2g Na,low cholest Activity: Light activity Follow Up/Referral: Stop drinking alcohol Follow up with the primary Dr Medications: [facility] Amphetamine-Dextroamphetamine (Adderall), 30 MG PO DAILY, (Reported) Clonazepam (Klonopin), 1 MG PO DAILY, (Reported) Folic Acid (Folic Acid), 1 MG PO DAILY Lisinopril (Lisinopril), 40 MG PO DAILY, (Reported) Omeprazole Magnesium (Omeprazole), 20 MG PO DAILY Pantoprazole Sodium Sesquihydr (Pantoprazole Sodium), 40 MG PO BID Sucralfate (Carafate), 1 GM PO QID Thiamine HCl (Thiamine Hydrochloride), 100 MG PO DAILY Discontinued Medications Docusate Sodium (Colace), 1 CAP PO BIDP PRN 35 (Critical care time 35 minutes) Discharge Statement: "Patient was advised to return to the ER or call 911 if any headaches, dizziness, shortness of breath, chest pain, abdominal pain, bleeding, fevers, or worsening of medical condition. Patient was counseled about treatment plan, medications, possible side effects, patientverbalized understanding. All questions were answered to the best of my ability. This discharge took greater then 30 minutes in planning, reviewing documentation, counseling the patient, and discussing with other team members." ASSESSMENT ASSESSMENT Hospital Course Uneventful Assessment Acute alcoholic intoxication with blood alcohol level 273: Down to 29 Banana bag Acute alcoholic withdrawal: Librium Ativan p.r.n. Acute Metabolic and toxic encephalopathy secondary to alcohol abuse Hypertension Acute dehydration: IV fluids No Previous History of seizures Melena, mild gastritis and duodenitis by EGD by Dr. Zachary Alvarenga Anxiety Depression CT abdomen pelvis without contrast neg Date of Service: Nov 27, 2024 Billing Provider: APRIL CUBA MD Common Visit Codes: [id number]-VHM/OBS DISCH DAY >30min APRLI CUAB MD Nov 27, 2024 12:10
[2024-11-27 13:00] VITALS: BP 150/100; PULSE 65; RESP 19; TEMP 97.3; O2SAT 98
--- NOTE | 2024-11-27 18:34 | DVHPN2 ---
Progress Note - Dictate Date Seen: Nov 27, 2024 (Late entryTime of visit 3:00 p.m.) Medical Necessity Reason Pt with a Central, PICC or Fol: No Subjective No new complaints Tolerating diet EGD findings reviewed with the patient vital signs Vital Sign Date Time Temp Pulse Resp B/P (MAP) Pulse Ox O2 Delivery O2 Flow Rate FiO2 11/27/24 13:00 97.3 65 19 150/100 (117) 98 97.3 11/27/24 08:00 Room Air* 0 21 Total Intake and Output 11/26/24 11/26/24 11/27/24 15:00 23:00 07:00 Intake Total 0 ml 1700 ml Balance 0 ml 1700 ml objective General Appearance: Alert, Oriented X3, Cooperative, No acute distress, Lungs: Clear to auscultation, Normal air movement, Other Cardiovascular: Regular rate, Normal S1, Normal S2, No murmurs, Gallops, Rubs, Other Abdomen: Normal bowel sounds, Soft, No tenderness, No hepatospenomegaly, No masses, laboratory and microbiology Laboratory Tests 11/27/24 06:08 Test 11/27/24 06:08 Range/Units Serum Glucose 112 H 74-106 mg/dL Problems(with codes): (1) Gastritis and duodenitis (2) Positive occult stool blood test (3) Melena (4) Abnormal stool color Prognosis Plan Discharge planning is in progress Protonix 40 mg p.o. twice a day Carafate 1 g p.o. twice a day DC aspirin NSAIDs smoking alcohol Outpatient follow up with me in 4-6 weeks to review results and discuss elective colonoscopy Plan discussed with: Patient MICHEAL ANGUIANO MD Nov 27, 2024 18:34
== END 2024-11-27 16:24 | disposition home or self-care (01) | DRG 241 ==
LOC: ER 00:34 → OVERFLOW 11:15 → EAST 17:20
PROVIDERS: ADMIT Family Medicine; ATTEND Family Medicine
PROC: 0DB68ZX Excision of Stomach, Via Natural or Artificial Opening Endoscopic, Diagnostic (ICD-10-PCS; 2024-11-26)
PROC: 0DB98ZX Excision of Duodenum, Via Natural or Artificial Opening Endoscopic, Diagnostic (ICD-10-PCS; principal; 2024-11-26 16:02)
DX: K29.81 Duodenitis with bleeding (principal); G92.8 Other toxic encephalopathy; G31.2 Degeneration of nervous system due to alcohol; R45.851 Suicidal ideations; F10.229 Alcohol dependence with intoxication, unspecified; K25.4 Chronic or unspecified gastric ulcer with hemorrhage; K29.71 Gastritis, unspecified, with bleeding; F10.239 Alcohol dependence with withdrawal, unspecified; K76.0 Fatty (change of) liver, not elsewhere classified; I10 Essential (primary) hypertension; F32.9 Major depressive disorder, single episode, unspecified; G40.909 Epilepsy, unspecified, not intractable, without status epilepticus; E86.0 Dehydration; F43.23 Adjustment disorder with mixed anxiety and depressed mood; G47.20 Circadian rhythm sleep disorder, unspecified type; Z91.51 Personal history of suicidal behavior; Z86.59 Personal history of other mental and behavioral disorders; Z82.49 Family history of ischemic heart disease and other diseases of the circulatory system; Y90.8 Blood alcohol level of 240 mg/100 ml or more
CPT/HCPCS: 36415; 43239; 74176; 80048; 80053; 80307; 80320; 81001; 82270; 83735; 85025; 85610; 86704; 86706; 86708; 86803; 87340; G0378; J2250; J2470